=== PATIENT | female | born 1985 | race Caucasian/White ===

== ENCOUNTER 2016-10-07 21:11 | Emergency (ER) | payer OTHER ==
[~2016-10-07] VITALS: Ht 167.6 cm; Wt 115.7 kg
[2016-10-07 21:37] VITALS: BP 135/81
--- NOTE | 2016-10-07 21:39 | PHYS DOC ---
Adult General Chief Complaint Chief Complaint: FINGER INJURY HPI HPI Patient is a 31 year old female who presents emergency room today with a complaint of a laceration to her left finger that occurred at approximately 5 PM today. Patient states last tetanus shot was approximate 6 years ago. She denies any additional injuries from this. Patient has a secondary complaint and request for a different Cam Walker reevaluation of her RIGHT ankle due to injury this been ongoing for greater than a month. She states that the cam walker is loose and causes her to slide around inside of it. She states that she has not followed up with an orthopedic doctor's of yet. Review of Systems Review of Systems Constitutional: Denies fever or chills [] Eyes: Denies change in visual acuity, redness, or eye pain [] HENT: Denies nasal congestion or sore throat [] Respiratory: Denies cough or shortness of breath [] Cardiovascular: No additional information not addressed in HPI [] GI: Denies abdominal pain, nausea, vomiting, bloody stools or diarrhea [] : Denies dysuria or hematuria [] Musculoskeletal: Denies back pain or joint pain [] Integument: Denies rash or skin lesions [] Neurologic: Denies headache, focal weakness or sensory changes [] Endocrine: Denies polyuria or polydipsia [] Current Medications Current Medications Current Medications Medications (Trade) Dose Ordered Sig/Bella Start Time Stop Time Status Last Admin Dose Admin Acetaminophen (Tylenol) 650 mg 1X ONCE 10/07/16 22:00 10/07/16 22:01 DC 10/07/16 22:00 650 MG Diphtheria/ Tetanus/Acell Pertussis (Boostrix) 0.5 ml ONCE ONCE 10/07/16 22:00 10/07/16 22:01 DC 10/07/16 22:01 0.5 ML Allergies Allergies Allergies Coded Allergies Type Severity Reaction Last Updated Verified Sulfa (Sulfonamide Antibiotics) Allergy Intermediate 10/07/16 Yes latex Allergy Intermediate 10/07/16 Yes Physical Exam Physical Exam Constitutional: Well developed, well nourished, no acute distress, non-toxic appearance. [] HENT: Normocephalic, atraumatic, bilateral external ears normal, oropharynx moist, no oral exudates, nose normal. [] Eyes: PERRLA, EOMI, conjunctiva normal, no discharge. [] Neck: Normal range of motion, no tenderness, supple, no stridor. [] Cardiovascular:Heart rate regular rhythm, no murmur [] Lungs & Thorax: Bilateral breath sounds clear to auscultation [] Abdomen: Bowel sounds normal, soft, no tenderness, no masses, no pulsatile masses. [] Skin: Warm, dry, no erythema, no rash. [] Back: No tenderness, no CVA tenderness. [] Extremities: Right middle finger with a superficial laceration to the tip and into the nail that is approximately 2.5 cm long. There is no active bleeding at this time. There is no involvement of the DIPJ. Distal fingers neurovascular intact with capillary refill less than 2 seconds. Neurologic: Alert and oriented X 3, normal motor function, normal sensory function, no focal deficits noted. [] Psychologic: Affect normal, judgement normal, mood normal. [] Current Patient Data Vital Signs Vital Signs Date Time Temp Pulse Resp B/P Pulse Ox O2 Delivery O2 Flow Rate FiO2 10/07/16 21:37 99.2 97 16 95 Room Air 99.2 EKG EKG [] Radiology/Procedures Radiology/Procedures Procedure note: Laceration to the distal left middle finger was cleansed with wound cleanser and rinsed with saline. The superficial laceration margins were approximated utilizing Steri-Strips. Small dressing with nonstick gauze and Coban was placed over top of this. This was performed by PRAMOD Dukes. Course & Med Decision Making Course & Med Decision Making I advised the patient that she needs to call Primary care doctor tomorrow morning and discuss her ongoing right ankle issues in the ill fitting cam boot. Patient also requested antibiotic as she has a son that is an MRSA carrier. Order prescription for doxycycline 100 mg by mouth twice a day for 7 days to cover for MRSA. Patient is somewhat disgruntled that she did not receive any pain medication prescriptions for pain medicine here in the emergency department. I advised the patient that she can follow-up with her primary care doctor to discuss ongoing issues with her ankle. Gertrudis Disclaimer Gertrudis Disclaimer This electronic medical record was generated, in whole or in part, using a voice recognition dictation system. Departure Departure Impression: Primary Impression: Laceration Additional Impression: Ankle pain Disposition: 01 HOME, SELF-CARE Condition: IMPROVED Patient Instructions: Ankle Pain, Laceration Care, Adult, [id number], Sterile Tape Wound Closure Additional Instructions: 1. The Steri-Strips will come off on their own. Do not pull them off. 2. Take the medication as prescribed. You can take acetaminophen every 4-6 hours or ibuprofen every 8 hours for the discomfort. 3. Review the discharge instructions for self-care and reasons to return to the emergency department. 4. Be sure to call your primary care doctor in the morning to discuss your ongoing issues with your ankle and the cam walker. Problem Qualifiers Additional Impression: Ankle pain Laterality: right Chronicity: chronic Qualified Code: M25.571 - Pain in right ankle and joints of right foot FRANK PARHAM Oct 07, 2016 21:39
[2016-10-07] MEDS ORDERED: ACETAMINOPHEN 325 MG TABLET. PO ONE (22:00)
[2016-10-07] MEDS ORDERED: DIPHTH,PERTUSS(ACELL),TET TOX 0.5 ML DISP.SYRIN. VAX IM ONE (22:00)
== END 2016-10-07 22:19 | disposition home or self-care (01) ==
LOC: ER 21:11
DX: S61.213A Laceration without foreign body of left middle finger without damage to nail, initial encounter (principal); M25.571 Pain in right ankle and joints of right foot; Z88.2 Allergy status to sulfonamides; Z91.040 Latex allergy status; X58.XXXA Exposure to other specified factors, initial encounter; Y93.89 Activity, other specified; Y92.89 Other specified places as the place of occurrence of the external cause; Y99.8 Other external cause status
CPT/HCPCS: 90471; 90715; 99283-25

== ENCOUNTER 2018-08-31 13:37 | Emergency (ER) | payer OTHER ==
[~2018-08-31] VITALS: Ht 165.1 cm; Wt 101.2 kg
[2018-08-31 14:20] VITALS: BP 133/68
[2018-08-31] MEDS ORDERED: OXYC1TAB15 PO (14:56)
[2018-08-31] MEDS ORDERED: PENI500T PO (14:56)
--- NOTE | 2018-08-31 14:57 | PHYS DOC ---
Past Medical History Past Medical History: Bronchitis, Hypothyroid, Sinusitis, Other Additional Past Medical Histor: miscarriage, cysts Past Surgical History: Cholecystectomy, Other Additional Past Surgical Histo: thyroidectomy Alcohol Use: Occasionally Drug Use: None Adult General Chief Complaint Chief Complaint: DENTAL PROBLEM HPI HPI Patient is a 33 year old female who presents with dental pain on the right and left upper the last 2 months. Patient does have dental caries seen the right and left upper mouth. Patient has a dental appointment on . She has no facial swelling. She is tender to palpation in the upper right and left gumline. Review of Systems Review of Systems Constitutional: Denies fever or chills [] Eyes: Denies change in visual acuity, redness, or eye pain [] HENT: Denies nasal congestion or sore throat. Dental pain. [] Respiratory: Denies cough or shortness of breath [] Cardiovascular: No additional information not addressed in HPI [] GI: Denies abdominal pain, nausea, vomiting, bloody stools or diarrhea [] : Denies dysuria or hematuria [] Musculoskeletal: Denies back pain or joint pain [] Integument: Denies rash or skin lesions [] Neurologic: Denies headache, focal weakness or sensory changes [] Endocrine: Denies polyuria or polydipsia [] All other systems were reviewed and found to be within normal limits, except as documented in this note. Current Medications Current Medications Current Medications Medications (Trade) Dose Ordered Sig/Bella Start Time Stop Time Status Last Admin Dose Admin Oxycodone/ Acetaminophen (Percocet 5/325) 1 tab 1X ONCE 08/31/18 15:15 08/31/18 15:15 DC 08/31/18 15:13 1 TAB Allergies Allergies Allergies Coded Allergies Type Severity Reaction Last Updated Verified Sulfa (Sulfonamide Antibiotics) Allergy Intermediate 10/07/16 Yes latex Allergy Intermediate 10/07/16 Yes Physical Exam Physical Exam Constitutional: Well developed, well nourished, no acute distress, non-toxic appearance. [] HENT: Normocephalic, atraumatic, bilateral external ears normal, oropharynx moist, no oral exudates, nose normal. Right and left upper dental caries. [] Eyes: PERRLA, EOMI, conjunctiva normal, no discharge. [] Neck: Normal range of motion, no tenderness, supple, no stridor. [] Cardiovascular:Heart rate regular rhythm, no murmur [] Lungs & Thorax: Bilateral breath sounds clear to auscultation [] Abdomen: Bowel sounds normal, soft, no tenderness, no masses, no pulsatile masses. [] Skin: Warm, dry, no erythema, no rash. [] Back: No tenderness, no CVA tenderness. [] Extremities: No tenderness, no cyanosis, no clubbing, ROM intact, no edema. [] Neurologic: Alert and oriented X 3, normal motor function, normal sensory function, no focal deficits noted. [] Psychologic: Affect normal, judgement normal, mood normal. [] Current Patient Data Vital Signs Vital Signs Date Time Temp Pulse Resp B/P (MAP) Pulse Ox O2 Delivery O2 Flow Rate FiO2 08/31/18 14:20 98.7 97 16 133/68 (89) 98 Room Air 98.7 EKG EKG [] Radiology/Procedures Radiology/Procedures [] Course & Med Decision Making Course & Med Decision Making Patient is a 33 year old female who presents with dental pain on the right and left upper the last 2 months. Patient does have dental caries seen the right and left upper mouth. Patient has a dental appointment on . She has no facial swelling. She is tender to palpation in the upper right and left gumline. Denies fever. Patient does have some broken teeth upon examination also. Patient rates her pain a 10 out of 10. Afebrile. Patient is to follow-up with her dentist as planned on and is given a prescription for penicillin and Percocet as her gumline is inflamed and reddened. Dragon Disclaimer Dragon Disclaimer This electronic medical record was generated, in whole or in part, using a voice recognition dictation system. Departure Departure Impression: Primary Impression: Dental caries Disposition: HOME, SELF-CARE Condition: STABLE Referrals: DENIA MILES MD (PCP) Patient Instructions: Dental Abscess, Dental Caries Additional Instructions: FOLLOW UP WITH YOUR DENTIST SCHEDULED. TAKE MEDICATIONS PRESCRIBED. Scripts Oxycodone/Apap 5-325 (PERCOCET 5-325 MG TABLET ) 1 Each Tablet 1 TAB PO PRN Q6HRS PRN for PAIN, #10 TAB 0 Refills Prov: PATTY JACKSON CASTINGS DRAFTER 08/31/18 Penicillin V Potassium (PENICILLIN V POTASSIUM) 500 Mg Tablet 500 MG PO QID for 10 Days, #40 TAB 0 Refills Prov: PATTY JACKSON APRN 08/31/18 PATTY JACKSON APRN Aug 31, 2018 14:57
[2018-08-31] MEDS ORDERED: oxyCODONE/APAP 5/325 1 TAB TABLET PO ONE (15:15)
[2018-10-10] MEDS ORDERED: FERR325T14 PO (09:04)
[2018-10-10] MEDS ORDERED: TIZA4TAB PO (09:04)
[2018-10-10] MEDS ORDERED: RANI150C PO (09:04)
[2018-10-10] MEDS ORDERED: METF850T8 PO (09:04)
[2018-10-10] MEDS ORDERED: DEXT20TA2 PO (09:04)
[2018-10-10] MEDS ORDERED: MELA3TAB2 PO (09:04)
[2018-10-10] MEDS ORDERED: CLON1TAB11 PO (09:04)
[2018-10-10] MEDS ORDERED: OXYC1TAB22 PO (09:04)
[2018-10-10] MEDS ORDERED: PNV1TABL25 PO (09:04)
[2018-10-10] MEDS ORDERED: IBUP-1060 PO (09:04)
[2018-10-10] MEDS ORDERED: METH-38 PO (09:04)
[2018-10-10] MEDS ORDERED: VENL150T PO (09:04)
[2018-10-10] MEDS ORDERED: HYDR-3164 PO (09:47)
== END 2018-08-31 15:15 | disposition home or self-care (01) ==
LOC: ER 13:37
DX: K02.9 Dental caries, unspecified (principal); J44.9 Chronic obstructive pulmonary disease, unspecified; Z88.2 Allergy status to sulfonamides; Z91.040 Latex allergy status
CPT/HCPCS: 99283

== ENCOUNTER → 2018-10-10 | Day surgery (SDC) | payer OTHER ==
[~2018-10-10] VITALS: Ht 165.1 cm; Wt 102.1 kg
[~2018-10-10] MED LIST: BUPIVACAINE 0.25% 50 ML VIAL. ONE; BUPIVACAINE MPF 0.25% 30 ML VIAL. IJ ONE; BUPIVACAINE-EPI 0.25%-1:200000 MPF 30 ML VIAL. ONE; CLON1TAB11 PO; DEXAMETHASONE SOD PHOS 20 MG/5 ML VIAL. ONE; DEXT20TA2 PO; FERR325T14 PO; HYDR-3164 PO; HYDROcodone/APAP 5/325MG 1 TAB TABLET PO ONE; IBUP-1060 PO; IV RINGERS,LACTATED 1000ML 1,000 ML IV SCH; LIDOCAINE 2% PF 5 ML VIAL. ONE; MELA3TAB2 PO; METF850T8 PO; METH-38 PO; MIDAZOLAM HCL/PF 2 MG/2 ML VIAL. ONE; ONDANSETRON PF 4 MG/2 ML VIAL. ONE; ORPH100T PO; OXYC1TAB15 PO; OXYC1TAB22 PO; PENI500T PO; PNV1TABL25 PO; PROPOFOL 20 ML IV ONE; RANI150C PO; SEVOFLURANE 16 TO 30 MINUTES. IH ONE; TIZA4TAB PO; VENL150T PO; ceFAZolin 2GM PREMIX 2 GM/50 ML BAG IV ONE; ceFAZolin SODIUM 1 GM VIAL ONE; fentaNYL PF VIAL 100 MCG/2 ML VIAL ONE
[2018-10-10 09:22] LABS: U PREG PATIENT NEGATIVE (NEG)
--- NOTE | 2018-10-10 09:46 | DISCH ---
DISCHARGE INSTRUCTIONS Condition on Discharge Condition on Discharge: Stable Activity After Discharge Activity Instructions for Disc: Other, see below (avoid hard grasp and pressure on incision for about 3 weeks) Weight Bearing Status after Di: Non weight bearing Diet after Discharge Diet after Discharge: Regular Wound Incision Care Wound/Incision Care: Do not change dressing (keep dressing clean and dry) Contacting the after DC Call your doctor for: Concerns you may have Follow-Up Follow up with: Pierre 10 days THUY ESPOSITO MD Oct 10, 2018 09:46
--- NOTE | 2018-10-10 09:50 | PDOC4 ---
Operative Note Operative Note Date of surgery: 10/10/2018 Preoperative diagnosis: Left carpal tunnel syndrome Postoperative diagnosis: Same with moderate median nerve compression Operative procedure: Left carpal tunnel release Surgeon: Pierre Anesthesia: Gen. Estimated blood loss: 1 mL Complications: None Operative indications: Please see my detailed preoperative note for operative indications and note that she did have documented EMG findings of median nerve compression at the carpal tunnel with corresponding clinical symptoms I her the possibility of nerve or blood vessel damage incomplete relief possible infection medical or other anesthetic competitions among other she wishes to proceed with surgical evaluation and treatment. Operative text: Patient was identified procedure verified patient placed in the supine position on the operating table. After adequate amounts of general anesthesia were administered the left upper extremity was prepped and draped in standard sterile fashion with an upper arm tourniquet. After timeout was performed patient procedure identified and verified the left upper extremity was exsanguinated by Esmarch bandage tourniquet inflated to 250 mmHg and a longitudinal incision was made just distal to the distal wrist crease dissection carried out down to the transverse carpal ligament which was completely divided under direct vision median nerve was noted to have moderate compression tendons were otherwise intact no sign of synovitis skin closure with nylon suture and a vertical mattress and simple fashion sterile dressings followed by a soft compressive dressing was placed patient was returned to recovery room in stable condition having tolerated procedure well fingers are noted be warm pink following deflation of the tourniquet THUY ESPOSITO MD Oct 10, 2018 09:50
[2018-10-10 11:38] VITALS: BP 109/64
== END | disposition home or self-care (01) ==
LOC: SURG 08:28
PROVIDERS: ATTEND Orthopaedic Surgery
DX: G56.02 Carpal tunnel syndrome, left upper limb (principal); F41.9 Anxiety disorder, unspecified; Z98.890 Other specified postprocedural states; Z79.899 Other long term (current) drug therapy; Z88.2 Allergy status to sulfonamides; Z88.6 Allergy status to analgesic agent; Z91.040 Latex allergy status
CPT/HCPCS: 64721; 81025; A7015; J0690; J0696; J1100; J2001; J2250; J2405; J2704; J3010; J3490

== ENCOUNTER 2018-10-11 20:23 | Emergency (ER) | payer OTHER ==
[~2018-10-11] VITALS: Ht 165.1 cm; Wt 105.2 kg
[~2018-10-11 20:23] MED LIST changes: -BUPIVACAINE 0.25% 50 ML VIAL. ONE; -BUPIVACAINE MPF 0.25% 30 ML VIAL. IJ ONE; -BUPIVACAINE-EPI 0.25%-1:200000 MPF 30 ML VIAL. ONE; -DEXAMETHASONE SOD PHOS 20 MG/5 ML VIAL. ONE; -HYDROcodone/APAP 5/325MG 1 TAB TABLET PO ONE; -IV RINGERS,LACTATED 1000ML 1,000 ML IV SCH; -LIDOCAINE 2% PF 5 ML VIAL. ONE; -MIDAZOLAM HCL/PF 2 MG/2 ML VIAL. ONE; -ONDANSETRON PF 4 MG/2 ML VIAL. ONE; -ORPH100T PO; -PROPOFOL 20 ML IV ONE; -SEVOFLURANE 16 TO 30 MINUTES. IH ONE; -ceFAZolin 2GM PREMIX 2 GM/50 ML BAG IV ONE; -ceFAZolin SODIUM 1 GM VIAL ONE; -fentaNYL PF VIAL 100 MCG/2 ML VIAL ONE
[2018-10-11] MEDS ORDERED: CYCLOBENZAPRINE 10 MG TABLET. PO ONE (22:00)
[2018-10-11] MEDS ORDERED: KETOROLAC 30 MG/ML VIAL. IM ONE (22:00)
--- NOTE | 2018-10-11 22:14 | PHYS DOC ---
Past Medical History Past Medical History: Bronchitis, Depression, Hypothyroid, Sinusitis, Other Additional Past Medical Histor: miscarriage, cysts, adhd,PCOS Past Surgical History: Cholecystectomy, Other Additional Past Surgical Histo: thyroidectomy, WRIST SURGERY YESTERDAY Smokin Pack Per Day Alcohol Use: Occasionally Drug Use: None Adult General Chief Complaint Chief Complaint: MECHANICAL FALL HPI HPI Patient is a 33 year old female who presents after sustaining an unwitnessed fall prior to arrival. Patient states that she fell off of a ladder around seven o'clock this evening. Patient states that she was three steps high when she fell and hit her head on wooden steps. Patient does not remember the event. Patient is complaining of a headache, back pain, nausea, and fatigue. Denies vomiting. Patient reports that she has chronic back pain, however, her current pain is worse than her usual pain. Patient currently rates her pain to be 7/10 and states that it is throbbing and sharp in nature. Patient states that she has been experimenting intermittent numbness of her right upper and lower extremities for the past six weeks and think she may have fell secondary to this numbness. Patient states that the numbness occurs multiple times a day and lasts about thirty minutes. Patient does reports having bulging discs in her cervical spine, a prior C5-C6 fusion, as well as a herniated disc in her thoracic spine. Patient did have carpal tunnel surgery on her left hand yesterday and is complaining of left hand pain as she tried to stop her fall with both hands. Patient has a prescription for Hydrocodone at home due to the surgery, and last took a pill about four hours prior to arrival. Patient is scheduled to follow up with pain management at in the future. Patient is not on any anticoagulants. Review of Systems Review of Systems Constitutional: Denies fever or chills Eyes: Denies change in visual acuity, or eye pain HENT: Denies nasal congestion or sore throat Respiratory: Denies cough or shortness of breath Cardiovascular: Denies chest pain or palpitations GI: Denies abdominal pain, vomiting, or diarrhea : Denies dysuria or hematuria Musculoskeletal: Reports back pain and neck pain. Integument: Denies rash or skin lesions Neurologic: Reports headache. Reports numbness in right upper and lower extremity. Complete systems were reviewed and found to be within normal limits, except as documented in this note. Current Medications Current Medications Current Medications Medications (Trade) Dose Ordered Sig/Bella Start Time Stop Time Status Last Admin Dose Admin Cyclobenzaprine HCl (Flexeril) 10 mg 1X ONCE 10/11/18 22:00 10/11/18 22:01 DC 10/11/18 22:14 10 MG Fentanyl Citrate (Fentanyl 2ml Vial) 75 mcg 1X ONCE 10/11/18 23:15 10/11/18 23:16 DC 10/11/18 23:47 75 MCG Ketorolac Tromethamine (Toradol 30mg Vial) 30 mg 1X ONCE 10/11/18 22:00 10/11/18 22:01 DC 10/11/18 22:15 30 MG Lidocaine/ Epinephrine (LIDOCAINE 2%-EPI 1:100,000 multi-dose) 20 ml 1X ONCE 10/11/18 23:15 10/11/18 23:16 DC Allergies Allergies Allergies Coded Allergies Type Severity Reaction Last Updated Verified Sulfa (Sulfonamide Antibiotics) Allergy Intermediate 10/10/18 Yes latex Allergy Intermediate 10/10/18 Yes gabapentin Adverse Reaction Intermediate becomes psychotic 10/10/18 Yes pregabalin Adverse Reaction Intermediate becomes psychotic 10/10/18 Yes Physical Exam Physical Exam Constitutional: Well developed, well nourished, no acute distress. HENT: Bilateral external ears normal, oropharynx moist, nose normal. 5 cm laceration located on the right parietal area with no active bleeding. Eyes: PERRL, EOMI, conjunctiva normal. Neck: Normal range of motion, tenderness of lower cervical spine on palpation, supple. Cardiovascular: Heart rate regular rhythm. No murmur. Lungs & Thorax: Bilateral breath sounds clear to auscultation. Abdomen: Soft, no tenderness. No guarding or rebound. Skin: Warm, dry. Back: No CVA tenderness. Tenderness of upper lumbar spine on palpation. Tenderness of mid thoracic spine on palpation. Extremities: No tenderness, ROM intact, no edema. Neurologic: Alert and oriented X 3, normal motor function, subjectively decreased sensation in right upper and right lower extremities, no focal deficits noted. CN's II - IX intact. Psychologic: Affect normal. Speech normal. Current Patient Data Vital Signs Vital Signs Date Time Temp Pulse Resp B/P (MAP) Pulse Ox O2 Delivery O2 Flow Rate FiO2 10/11/18 23:47 18 99 Room Air 10/11/18 23:20 88 10/11/18 21:00 98.0 134/74 (94) 98.0 EKG EKG [] Radiology/Procedures Radiology/Procedures PROCEDURE: CT HEAD AND CERVICAL SPINE WO Examination: CT head and cervical spine without contrast CT HEAD INDICATION: S/P FALL-PAIN COMPARISON: None Available. Exposure: One or more of the following individualized dose reduction techniques were utilized for this examination: 1. Automated exposure control 2. Adjustment of the mA and/or kV according to patient size 3. Use of iterative reconstruction technique TECHNIQUE: 5 mm contiguous axial images were obtained from the skull base to the vertex in both bone and soft tissue algorithm. FINDINGS: \ No abnormal attenuation within the brain parenchyma. No evidence of acute intracranial hemorrhage. No extra-axial fluid collections. No mass effect or midline shift. Ventricular size is appropriate. Basal cisterns are patent. No fractures identified.Olivas-white differentiation is preserved.Globes and orbits are within normal limits. Paranasal sinuses and mastoid air cells are clear. IMPRESSION: No acute intracranial findings. CT CERVICAL SPINE INDICATION: S/P FALL-PAIN COMPARISON: None Available. Technique: 2.5 mm contiguous axial images were obtained from the skull base through the cervicothoracic junction in both bone and soft tissue algorithm. Additional sagittal and coronal reconstructions were also performed. FINDINGS: Vertebral body height and alignment are maintained. Cervical lordosis is preserved. The lateral masses of C1 are aligned upon C2. No fractures identified. The bony canal is patent throughout. Anterior cervical fusion hardware with intervertebral disc spacers identified at C5-C6 vertebral level. The bilateral facets are well aligned. The paraspinous soft tissues are unremarkable. Visualized intracranial contents are unremarkable. Lung apices are clear. IMPRESSION: 1. No acute fracture of the cervical spine. Correlate clinically. 2. Anterior cervical fusion hardware identified at C5-C6 vertebral level. 3. See thoracic spine report. Electronically signed by: Everardo Montelongo MD (10/11/2018 10:23 PM) [facility] PROCEDURE: CT THORACIC & LUMBAR SPINE WO CONTRAST Examination: CT thoracic and lumbar spine without contrast HISTORY: History of fall, pain COMPARISON: 02/25/2018 TECHNIQUE: Axial CT images of the thoracic and lumbar spine are performed without contrast. Coronal and sagittal reformats are performed Exposure: One or more of the following individualized dose reduction techniques were utilized for this examination: 1. Automated exposure control 2. Adjustment of the mA and/or kV according to patient size 3. Use of iterative reconstruction technique FINDINGS: There are mild superior endplate compression changes of T2, T3, T4, T5 vertebral levels which appears new since prior exam. There is a lucency identified in the right lamina of T2 which appears new since prior exam however this is well-visualized axial and not clearly identified on the coronal image could be fracture or artifactual.. No evidence of listhesis identified. The bilateral facets appear to be well aligned. The lumbar vertebral body heights are maintained. There is a lucency identified in the right transverse process of L3 likely fracture. Mild groundglass airspace opacities identified in the bibasilar lungs likely atelectasis or infiltrates. IMPRESSION: 1. There is a lucency identified in the right lamina of T2 which appears new since prior exam however this is well-visualized axial and not clearly identified on the coronal image could be fracture. Minimal superior endplate compression changes of T2-T5 vertebral levels identified. Recommend MRI for further evaluation. Correlate for point tenderness. 2. Nondisplaced fracture of right transverse process of L3. Correlate for point tenderness. Electronically signed by: Everardo Montelongo MD (10/11/2018 10:36 PM) [facility] Course & Med Decision Making Course & Med Decision Making Pertinent Labs and Imaging studies reviewed. (See chart for details) Patient is a 33 year old female who presents to the ED for evaluation after falling prior to arrival. Due to head trauma, possible loss of consciousness, and midline lumbar, thoracic, and cervical tenderness, CT head, neck, lumbar and thoracic spines ordered. Right L3 transverse process fracture noted on CT. Patient treated with 30mg Ketorolac IV and 10mg Cyclobenzaprine IV in the ED for pain. Scalp laceration was closed with 2 sutures without difficulty. On reexamination patient reports improvement of pain. Patient stable for discharge with outpatient follow-up with PCP. Discussed findings and plan with patient and family, who acknowledge understanding and agreement. Dragon Disclaimer Dragon Disclaimer This electronic medical record was generated, in whole or in part, using a voice recognition dictation system. Departure Departure Impression: Primary Impression: Fall Additional Impressions: Scalp laceration Cervical strain Lumbar transverse process fracture Disposition: 01 HOME, SELF-CARE Condition: STABLE Referrals: DENIA MILES MD (PCP) COREY APONTE MD Patient Instructions: Cervical Sprain, [id number], Fall Prevention and Home Safety, [id number], Laceration Care, Adult, [id number], Transverse Process Fracture Scripts Orphenadrine Citrate (ORPHENADRINE CITRATE) 100 Mg Tablet.er 100 MG PO BID PRN for MUSCLE PAIN, #14 Prov: EVELYNE SAUCEDA DO 10/11/18 Laceration/Wound Repair Laceration/Wound Repair : Wound Location: head Wound's Depth, Shape: linear Wound Explored: contaminated Irrigated w/ Saline (ccs): 250 Anesthesia: Lidocaine w/ Epi (2%) Volume Anesthetic (ccs): 3 Progress Time out performed. Hand hygiene utilized. Wound cleaned with chloroprep sponge. 3cm scalp laceration to the right parietal area noted. A 25 gauge hypodermic needle was utilized to infiltrate 3cc of 2% lidocaine with epinephrine for adequate anesthesia. [place] x2 placed with good approximation. Neosporin applied by nursing. Patient tolerated procedure well and without difficulty. Problem Qualifiers Primary Impression: Fall Encounter type: initial encounter Qualified Codes: W19.XXXA - Unspecified fall, initial encounter Additional Impressions: Scalp laceration Encounter type: initial encounter Qualified Codes: S01.01XA - Laceration without foreign body of scalp, initial encounter Cervical strain Encounter type: initial encounter Qualified Codes: S16.1XXA - Strain of muscle, fascia and tendon at neck level, initial encounter Lumbar transverse process fracture Encounter type: initial encounter Fracture type: closed Qualified Codes: S32.009A - Unspecified fracture of unspecified lumbar vertebra, initial encounter for closed fracture EVELYNE SAUCEDA DO Oct 11, 2018 22:14
--- NOTE | 2018-10-11 22:26 | RAD ---
Examination: CT head and cervical spine without contrast CT HEAD INDICATION: S/P FALL-PAIN COMPARISON: None Available. Exposure: One or more of the following individualized dose reduction techniques were utilized for this examination: 1. Automated exposure control 2. Adjustment of the mA and/or kV according to patient size 3. Use of iterative reconstruction technique TECHNIQUE: 5 mm contiguous axial images were obtained from the skull base to the vertex in both bone and soft tissue algorithm. FINDINGS: \ No abnormal attenuation within the brain parenchyma. No evidence of acute intracranial hemorrhage. No extra-axial fluid collections. No mass effect or midline shift. Ventricular size is appropriate. Basal cisterns are patent. No fractures identified.Olivas-white differentiation is preserved.Globes and orbits are within normal limits. Paranasal sinuses and mastoid air cells are clear. IMPRESSION: No acute intracranial findings. CT CERVICAL SPINE INDICATION: S/P FALL-PAIN COMPARISON: None Available. Technique: 2.5 mm contiguous axial images were obtained from the skull base through the cervicothoracic junction in both bone and soft tissue algorithm. Additional sagittal and coronal reconstructions were also performed. FINDINGS: Vertebral body height and alignment are maintained. Cervical lordosis is preserved. The lateral masses of C1 are aligned upon C2. No fractures identified. The bony canal is patent throughout. Anterior cervical fusion hardware with intervertebral disc spacers identified at C5-C6 vertebral level. The bilateral facets are well aligned. The paraspinous soft tissues are unremarkable. Visualized intracranial contents are unremarkable. Lung apices are clear. IMPRESSION: 1. No acute fracture of the cervical spine. Correlate clinically. 2. Anterior cervical fusion hardware identified at C5-C6 vertebral level. 3. See thoracic spine report. Electronically signed by: Everardo Montelongo MD (10/11/2018 10:23 PM) [place] [id number]
--- NOTE | 2018-10-11 22:38 | RAD ---
Examination: CT thoracic and lumbar spine without contrast HISTORY: History of fall, pain COMPARISON: 02/25/2018 TECHNIQUE: Axial CT images of the thoracic and lumbar spine are performed without contrast. Coronal and sagittal reformats are performed Exposure: One or more of the following individualized dose reduction techniques were utilized for this examination: 1. Automated exposure control 2. Adjustment of the mA and/or kV according to patient size 3. Use of iterative reconstruction technique FINDINGS: There are mild superior endplate compression changes of T2, T3, T4, T5 vertebral levels which appears new since prior exam. There is a lucency identified in the right lamina of T2 which appears new since prior exam however this is well-visualized axial and not clearly identified on the coronal image could be fracture or artifactual.. No evidence of listhesis identified. The bilateral facets appear to be well aligned. The lumbar vertebral body heights are maintained. There is a lucency identified in the right transverse process of L3 likely fracture. Mild groundglass airspace opacities identified in the bibasilar lungs likely atelectasis or infiltrates. IMPRESSION: 1. There is a lucency identified in the right lamina of T2 which appears new since prior exam however this is well-visualized axial and not clearly identified on the coronal image could be fracture. Minimal superior endplate compression changes of T2-T5 vertebral levels identified. Recommend MRI for further evaluation. Correlate for point tenderness. 2. Nondisplaced fracture of right transverse process of L3. Correlate for point tenderness. Electronically signed by: Everardo Montelongo MD (10/11/2018 10:36 PM) [facility]
[2018-10-11] MEDS ORDERED: LIDOCAINE 2%/EPI 1:100,000 20 ML VIAL. IJ ONE (23:15)
[2018-10-11] MEDS ORDERED: fentaNYL PF VIAL 100 MCG/2 ML VIAL IM ONE (23:15)
[2018-10-11 23:20] VITALS: BP 117/76
[2018-10-11] MEDS ORDERED: ORPH100T PO (23:48)
== END 2018-10-12 | disposition home or self-care (01) ==
LOC: ER 20:23
DX: S32.009A Unspecified fracture of unspecified lumbar vertebra, initial encounter for closed fracture (principal); S01.01XA Laceration without foreign body of scalp, initial encounter; S16.1XXA Strain of muscle, fascia and tendon at neck level, initial encounter; E03.9 Hypothyroidism, unspecified; F17.200 Nicotine dependence, unspecified, uncomplicated; Z91.040 Latex allergy status; Z88.2 Allergy status to sulfonamides; Z88.8 Allergy status to other drugs, medicaments and biological substances; W18.39XA Other fall on same level, initial encounter; Y93.89 Activity, other specified; Y92.89 Other specified places as the place of occurrence of the external cause; Y99.8 Other external cause status
CPT/HCPCS: 12002; 70450; 72125; 72128; 72131; 96372; 99284; J1885; J3010; 96374; 96375

== ENCOUNTER 2018-10-21 17:25 | Emergency (ER) | payer OTHER ==
[~2018-10-21] VITALS: Ht 165.1 cm; Wt 100.7 kg
[~2018-10-21 17:25] MED LIST changes: +ORPH100T PO
[2018-10-21 17:31] VITALS: BP 133/81
--- NOTE | 2018-10-21 17:58 | PHYS DOC ---
Past Medical History Past Medical History: Bronchitis, Depression, Hypothyroid, Sinusitis, Other Additional Past Medical Histor: miscarriage, cysts, adhd,PCOS (MICHAEL SMITH) Past Surgical History: Cholecystectomy, Other Additional Past Surgical Histo: thyroidectomy, WRIST SURGERY YESTERDAY (MICHAEL SMITH) Alcohol Use: None Drug Use: None (MICHAEL SMITH) Adult General Chief Complaint Chief Complaint: SUTURE/STAPLE REMOVAL [facility] HPI Patient is a 33 year old female presents to the ED for staple removal. Patient states she had mak placed last Saturday due to head injury. States she is feeling much better. Denies bleeding, dehiscence, new injury, fever, drainage, purulent discharge or redness. (MICHAEL SMITH) Review of Systems Review of Systems Constitutional: Denies fever or chills [] Eyes: Denies change in visual acuity, redness, or eye pain [] HENT: Denies nasal congestion or sore throat [] Respiratory: Denies cough or shortness of breath [] Cardiovascular: No additional information not addressed in HPI [] GI: Denies abdominal pain, nausea, vomiting, bloody stools or diarrhea [] : Denies dysuria or hematuria [] Musculoskeletal: Denies back pain or joint pain [] Integument: Denies rash or skin lesions [] Neurologic: Denies headache, focal weakness or sensory changes [] All other systems were reviewed and found to be within normal limits, except as documented in this note. (MICHAEL SMITH) Allergies Allergies Allergies Coded Allergies Type Severity Reaction Last Updated Verified Sulfa (Sulfonamide Antibiotics) Allergy Intermediate 10/10/18 Yes latex Allergy Intermediate 10/10/18 Yes gabapentin Adverse Reaction Intermediate becomes psychotic 10/10/18 Yes pregabalin Adverse Reaction Intermediate becomes psychotic 10/10/18 Yes (MILIND DELGADO MD) Physical Exam Physical Exam Constitutional: Well developed, well nourished, no acute distress, non-toxic appearance. [] HENT: Normocephalic, atraumatic. 2 mak intact left right scalp. C/D/I. No signs of infection, drainage or dehiscence. Skin: Warm, dry, no erythema, no rash. [] Back: No tenderness, no CVA tenderness. [] Extremities: No tenderness, no cyanosis, no clubbing, ROM intact, no edema. [] Neurologic: Alert and oriented X 3, normal motor function, normal sensory function, no focal deficits noted. [] Psychologic: Affect normal, judgement normal, mood normal. [] (MICHAEL SMITH) Current Patient Data Vital Signs Vital Signs Date Time Temp Pulse Resp B/P (MAP) Pulse Ox O2 Delivery O2 Flow Rate FiO2 10/21/18 17:31 98.1 99 15 133/81 (98) 97 98.1 (MILIND DELGADO MD) EKG EKG [] (MICHAEL SMITH) Radiology/Procedures Radiology/Procedures [] (MICHAEL SMITH) Course & Med Decision Making Course & Med Decision Making Pertinent Labs and Imaging studies reviewed. (See chart for details) []Mak removed. No complications. Patient tolerated well. (MICHAEL SMITH) Course & Med Decision Making Staff Physician Addendum: I was working in the ER during the course of this patient's visit. I was available for consultation as needed, but I was not directly involved in the care of this patient. (MILIND DELGADO MD) Dragon Disclaimer Dragon Disclaimer This electronic medical record was generated, in whole or in part, using a voice recognition dictation system. (MICHAEL SMITH) Departure Departure Impression: Primary Impression: Removal of staple Disposition: 01 HOME, SELF-CARE Condition: IMPROVED Referrals: DENIA MILES MD (PCP) Patient Instructions: Staple Care and Removal MICHAEL SMITH Oct 21, 2018 17:58 MILIND DELGADO MD Oct 23, 2018 04:17
== END 2018-10-21 18:14 | disposition home or self-care (01) ==
LOC: ER 17:25
DX: S01.01XD Laceration without foreign body of scalp, subsequent encounter (principal); F32.9 Major depressive disorder, single episode, unspecified; E89.0 Postprocedural hypothyroidism; Z90.49 Acquired absence of other specified parts of digestive tract; Z88.2 Allergy status to sulfonamides; Z88.8 Allergy status to other drugs, medicaments and biological substances; Z91.040 Latex allergy status; X58.XXXD Exposure to other specified factors, subsequent encounter
CPT/HCPCS: 99281

== ENCOUNTER 2020-03-25 11:17 | Emergency (ER) | payer MEDICAID, OTHER ==
[~2020-03-25] VITALS: Ht 167.6 cm; Wt 106.9 kg
[2020-03-25 11:17] VITALS: BP 130/78
[~2020-03-25 11:17] MED LIST changes: -CLON1TAB11 PO; +CLONAZEPAM1 MG PO; -MELA3TAB2 PO; +MELA3TAB4 PO; -TIZA4TAB PO; +TIZA4TAB2 PO
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
--- NOTE | 2020-03-25 12:03 | RAD ---
EXAMINATION: HAND RIGHT 3V, WRIST 3V RIGHT CLINICAL HISTORY: Right hand and wrist pain following injury TECHNIQUE: HAND RIGHT 3V, WRIST 3V RIGHT Number of Images/Views: 3 each COMPARISON: None FINDINGS: Joint spaces and alignment maintained. No acute fracture. No focal soft tissue swelling. IMPRESSION: No acute osseous abnormality. Electronically signed by: Marck Mckenzie DO (03/25/2020 12:00 PM) [id number]
[2020-03-25] MEDS ORDERED: MUPI15CR8 TP (12:14)
[2020-03-25] MEDS ORDERED: CLIN300C8 PO (12:14)
== END 2020-03-25 12:35 | disposition home or self-care (01) ==
LOC: ER 11:17
DX: S60.221A Contusion of right hand, initial encounter (principal); S60.031A Contusion of right middle finger without damage to nail, initial encounter; S60.041A Contusion of right ring finger without damage to nail, initial encounter; S60.051A Contusion of right little finger without damage to nail, initial encounter; M25.531 Pain in right wrist; L02.91 Cutaneous abscess, unspecified; Z88.2 Allergy status to sulfonamides; Z91.040 Latex allergy status; Z88.8 Allergy status to other drugs, medicaments and biological substances; E03.9 Hypothyroidism, unspecified; F17.200 Nicotine dependence, unspecified, uncomplicated; W22.03XA Walked into furniture, initial encounter; Y93.89 Activity, other specified; Y92.89 Other specified places as the place of occurrence of the external cause; Y99.8 Other external cause status
CPT/HCPCS: 29125; 73110; 73130; 99284

== ENCOUNTER → 2020-10-04 | Outpatient (CLI) | payer MEDICAID ==
[~2020-10-04] MED LIST changes: +ACET500T68 PO; +ASPI-621 PO; +BUPR150T15 PO; +CLIN300C9 PO; +LEVO175T5 PO; +MUPI15CR8 TP
== END ==
LOC: LAB 14:59
PROVIDERS: ATTEND Orthopaedic Surgery
DX: Z01.812 Encounter for preprocedural laboratory examination (principal); G56.01 Carpal tunnel syndrome, right upper limb; Z20.822 Contact with and (suspected) exposure to COVID-19
CPT/HCPCS: U0003; U0005

== ENCOUNTER 2020-10-07 06:28 | Day surgery (SDC) | payer MEDICAID ==
[~2020-10-07] VITALS: Ht 165.1 cm; Wt 102.1 kg
[~2020-10-07 06:28] MED LIST changes: +HYDROmorphone 2 MG/ML VIAL IVP PRN; +IV RINGERS,LACTATED 1000ML 1,000 ML IV SCH; +MORPHINE SULFATE 2 MG/ML VIAL. IVP PRN; +PROCHLORPERAZINE 10 MG/2 ML VIAL. IVP PRN; +fentaNYL PF VIAL 100 MCG/2 ML VIAL IVP PRN
[2020-10-07] MEDS ORDERED: BUPIVACAINE MPF 0.25% 30 ML VIAL. ONE (06:45)
[2020-10-07] MEDS ORDERED: LIDOCAINE 2% PF 5 ML VIAL. ONE ×3 (07:02)
[2020-10-07] MEDS ORDERED: PROPOFOL 10 MG/ML (20ML) VIAL. IV ONE ×3 (07:16→08:07)
[2020-10-07] MEDS ORDERED: MIDAZOLAM HCL/PF 2 MG/2 ML VIAL. ONE (07:16)
[2020-10-07] MEDS ORDERED: HYDR-2765 PO (07:50)
--- NOTE | 2020-10-07 07:51 | DISCH ---
DISCHARGE INSTRUCTIONS Condition on Discharge Condition on Discharge: Stable Activity After Discharge Activity Instructions for Disc: Other, see below (Avoid hard grasp may do g entle fine motor use without restriction) Weight Bearing Status after Di: Non weight bearing Diet after Discharge Diet after Discharge: Regular Wound Incision Care Wound/Incision Care: Keep wound elevated, Do not change dressing (Keep dressing intact for protection unless soiled) Contacting the after DC Call your doctor for: Concerns you may have Follow-Up Follow up with: Dr. Jay or Radha 10 days THUY JAY MD Oct 07, 2020 07:51
[2020-10-07] MEDS ORDERED: fentaNYL PF VIAL 100 MCG/2 ML VIAL ONE (08:42)
[2020-10-07] MEDS ORDERED: oxyCODONE IR 5 MG TABLET PO ONE (08:45)
[2020-10-07] MEDS ORDERED: OXYC5TAB2 PO (08:49)
[2020-10-07] MEDS: fentaNYL PF VIAL 100 MCG/2 ML VIAL IVP PRN ×2 (08:50→08:57)
[2020-10-07 09:02] VITALS: BP 112/80
[2020-10-07] MEDS ORDERED: ONDANSETRON PF 4 MG/2 ML VIAL. ONE (09:22)
[2020-10-07] MEDS ORDERED: ONDANSETRON PF 4 MG/2 ML VIAL. IVP ONE (09:30)
--- NOTE | 2020-10-07 19:28 | PDOC4 ---
Operative Note Operative Note Date of surgery: 10/07/2020 Preoperative diagnosis: Right carpal tunnel syndrome Postoperative diagnosis: Same with moderate median nerve compression Operative procedure: Right carpal tunnel release Surgeon: [employer] Lecturer: Donavan tinsley Anesthesia: [place] block Estimated blood loss: 1 cc Complications: None Operative indications: Please see my orthopedic clinic note for detailed operative indications and note that patient had clinically worsening signs of median nerve compression that were confirmed by EMG unresponsive to nonoperative management. We had talked about the possibility of ongoing nonoperative management with bracing and activity modification which she had failed. We also talked about operative release including the possibility of infection nerve or blood vessel damage incomplete relief incisional tenderness medical or other anesthetic complications among others all her questions were answered she wishes to proceed with surgical evaluation and treatment Operative text: Patient was identified procedure verified patient placed in the supine position on the operating table. After adequate amounts of Thao block anesthesia were administered the right upper extremity was prepped and draped in standard sterile fashion and after timeout was performed patient procedure identified and verified a midline incision was made just distal to the distal wrist crease and dissection carried out down to the transverse carpal ligament which was divided longitudinally toward its ulnar aspect initially using a scalpel and then at its proximal and distal extent with blunt tipped scissors and complete release was verified both visually and palpably. Median nerve was noted to have moderate compression and flexor tendons intact with no evidence of synovitis. Closure accomplished with nylon suture and a combination of vertical mattress and simple fashion. Sterile soft dressings were applied fingers were noted be warm pink following deflation of tourniquet patient returned to recovery room stable condition having tolerated procedure well THUY ESPOSITO MD Oct 07, 2020 19:28
== END 2020-10-07 09:40 | disposition home or self-care (01) ==
LOC: SURG 06:28
PROVIDERS: ATTEND Orthopaedic Surgery
DX: G56.01 Carpal tunnel syndrome, right upper limb (principal); E66.9 Obesity, unspecified; K21.9 Gastro-esophageal reflux disease without esophagitis; F41.9 Anxiety disorder, unspecified; F32.9 Major depressive disorder, single episode, unspecified; F17.210 Nicotine dependence, cigarettes, uncomplicated; Z90.49 Acquired absence of other specified parts of digestive tract; Z98.890 Other specified postprocedural states; Z79.899 Other long term (current) drug therapy; Z79.82 Long term (current) use of aspirin; Z88.2 Allergy status to sulfonamides; Z91.040 Latex allergy status; Z88.8 Allergy status to other drugs, medicaments and biological substances
CPT/HCPCS: 64721; 81025; A4930; J0690; J2250; J2405; J2704; J3010; A4657; A6452; J3490

== ENCOUNTER 2020-12-27 20:02 | Emergency (ER) | payer OTHER, MEDICAID ==
[~2020-12-27 20:02] MED LIST changes: +HYDR-2765 PO; -HYDROmorphone 2 MG/ML VIAL IVP PRN; -IV RINGERS,LACTATED 1000ML 1,000 ML IV SCH; -MORPHINE SULFATE 2 MG/ML VIAL. IVP PRN; +OXYC5TAB2 PO; -PROCHLORPERAZINE 10 MG/2 ML VIAL. IVP PRN; -fentaNYL PF VIAL 100 MCG/2 ML VIAL IVP PRN
[2020-12-27] MEDS ORDERED: IV NORMAL SALINE 1000ML BAG 1,000 ML IV SCH (20:15)
[2020-12-27 20:44] LABS: BASO # 0.1 x10^3/uL (0.0-0.2); BASO % 1 % (0-3); EOS % 0 % (0-3); HEMATOCRIT 39.1 % (36.0-47.0); LYMPH # 1.3 x10^3/uL (1.0-4.8); LYMPH % 6 % (24-48); MEAN CORPUSCULAR HEMOGLOBIN 30 pg (25-35); MEAN CORPUSCULAR HGB CONC 33 g/dL (31-37); MEAN CORPUSCULAR VOLUME 91 fL (79-100); MONO # 0.8 x10^3/uL (0.0-1.1); MONO % 4 % (0-9); NEUT # 21.5 x10^3/uL (1.8-7.7); NEUT % 90 % (31-73); PLATELET COUNT 264 x10^3/uL (140-400); RED CELL DISTRIBUTION WIDTH 15.7 % (11.5-14.5); WHITE BLOOD COUNT 23.8 x10^3/uL (4.0-11.0)
[2020-12-27] MEDS ORDERED: DIPH,PERTUSS(ACELL),TET VAC/PF 0.5 ML SYRINGE. VAX IM ONE (20:45)
[2020-12-27 20:53] LABS: CALCIUM 8.3 mg/dL (8.5-10.1); GFR 62.7
[2020-12-27 20:55] LABS: PROTHROMBIN TIME PATIENT 12.6 SEC (11.7-14.0)
[2020-12-27 20:57] LABS: PREG TEST PT QUAL NEGATIVE (NEG)
[2020-12-27] MEDS ORDERED: CONTRAST GIVEN. MC PRN (21:00)
[2020-12-27] MEDS ORDERED: HYDROmorphone 2 MG/ML VIAL ONE (21:00)
[2020-12-27 21:14] LABS: ALBUMIN 4.4 g/dL (3.4-5.0); ALBUMIN/GLOBULIN RATIO 1.3 (1.0-1.7); TOTAL BILIRUBIN 0.3 mg/dL (0.2-1.0); TOTAL PROTEIN 7.7 g/dL (6.4-8.2)
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
[2020-12-27] MEDS ORDERED: HYDROmorphone 2 MG/ML VIAL IVP ONE ×3 (21:30→23:45)
[2020-12-27] MEDS ORDERED: IOHEXOL 350 MG/ML 100 ML VIAL. IV ONE (21:30)
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
[2020-12-27 23:25] LABS: BARBITURATES NEG (NEG); BENZODIAZEPINES POS (NEG); CANNABINOIDS POS (NEG); COCAINE NEG (NEG); METHADONE NEG (NEG); OPIATES POS (NEG); PHENCYCLIDINE NEG (NEG)
[2020-12-27 23:26] LABS: AMPHETAMINE/METHAMPHETAMINE POS (NEG)
[2020-12-27] MEDS ORDERED: VANCOMYCIN PER PHARMACY MC PRN (23:45)
[2020-12-28] MEDS ORDERED: cefTRIAXone IV Push 1 GM VIAL. IVP ONE
[2020-12-28] MEDS ORDERED: VANCOMYCIN 2 GM in IV NORMAL SALINE 500ML BAG 500 ML IV ONE (00:30)
== END 2020-12-28 00:34 | disposition short-term general hospital (02) ==
LOC: ER 20:02
DX: S11.91XA Laceration without foreign body of unspecified part of neck, initial encounter (principal); S00.83XA Contusion of other part of head, initial encounter; S27.321A Contusion of lung, unilateral, initial encounter; E87.6 Hypokalemia; F10.129 Alcohol abuse with intoxication, unspecified; Y90.4 Blood alcohol level of 80-99 mg/100 ml; E03.9 Hypothyroidism, unspecified; G89.29 Other chronic pain; F17.200 Nicotine dependence, unspecified, uncomplicated; Z88.2 Allergy status to sulfonamides; Z91.041 Radiographic dye allergy status; Z88.5 Allergy status to narcotic agent; Z88.8 Allergy status to other drugs, medicaments and biological substances; V49.59XA Passenger injured in collision with other motor vehicles in traffic accident, initial encounter; Y93.89 Activity, other specified; Y92.488 Other paved roadways as the place of occurrence of the external cause; Y99.8 Other external cause status
CPT/HCPCS: 12014; 36415; 70450; 70498; 71260; 72125; 74177; 80053; 80307; 83690; 84703; 85025; 85379; 85610; 85730; 96361; 96374; 96375; 96376; 99285; G0480; J0696; J1170; J7030; Q9967